=== PATIENT | male | born 1945 | race Caucasian/White ===

== ENCOUNTER → 2016-09-12 | Outpatient (CLI) | payer BC ==
[~2016-09-12] MED LIST: ASPEC325 PO; ASPI-113 PO; ASPI-435 PO; ATOR-26 PO; DOCU100T7 PO; ENOX40IN SQ; FENO1TAB PO; FRS/40 PO; HYDR-5688 PO; METO50TA7 PO; POTA10CA28 PO; PRLSR20 PO
[2016-09-12 09:43] LABS: ALT/SGPT 32 U/L (12-78); AST/SGOT 26 U/L (15-37); BLOOD UREA NITROGEN 19 mg/dl (7-18); BUN/CREATININE RATIO 16.8 (10-20); CALCIUM 8.7 mg/dl (8.5-10.1); CARBON DIOXIDE 26 mmol/L (21-32); CHLORIDE 104 mmol/L (98-107); CHOLESTEROL 136 mg/dl (0-200); GLUCOSE 105 mg/dl (70-99); POTASSIUM 4.4 mmol/L (3.5-5.1); SODIUM 137 mmol/L (136-145); TRIGLYCERIDES 104 mg/dl (0-150); VERY LOW DENSITY LIPOPROT CALC 21 mg/dl
[2016-09-12 09:46] LABS: ALKALINE PHOSPHATASE 72 U/L (45-117); CHOLESTEROL/HDL RATIO 3.9; HDL CHOLESTEROL 35 mg/dl
[2016-09-12 09:53] LABS: ESTIMATED AVERAGE GLUCOSE 128 mg/dl; HA1C FLAG Normal (Normal)
== END | disposition home or self-care (01) ==
LOC: C.LAB1850 08:22
PROVIDERS: ATTEND Internal Medicine
DX: E78.5 Hyperlipidemia, unspecified (principal); I10 Essential (primary) hypertension; I25.10 Atherosclerotic heart disease of native coronary artery without angina pectoris; R73.9 Hyperglycemia, unspecified

== ENCOUNTER → 2016-11-07 | Outpatient (CLI) | payer BC | END | disposition home or self-care (01) | LOC: C.RDSM 14:01 | PROVIDERS: ATTEND Family Medicine Sports Medicine | DX: M25.561 Pain in right knee (principal) ==

== ENCOUNTER → 2016-12-19 | Outpatient (CLI) | payer BC ==
--- NOTE | 2016-12-19 14:31 | DIAGNOSTIC IMAGING REPORT ---
MRI THE RIGHT KNEE NO CONTRAST CLINICAL HISTORY: Right knee pain COMPARISON STUDY: Conventional radiographic study dated 11/07/2016 FINDINGS: Imaging was performed in sagittal, coronal, and axial planes. The patient was too large to fit into the high resolution coil. A larger coil was therefore utilized. There are no areas of marrow replacement to indicate occult fracture, bone bruise, or neoplasm. There is a suprapatellar joint effusion. The quadriceps and patellar tendons appear intact. Anterior and posterior cruciate ligaments appear intact. The medial and lateral collateral ligaments appear intact. There is a small subchondral cyst involving the far medial aspect of the medial tibial plateau. No tears a lateral meniscus are visualized. There is mild medial extrusion of the medial meniscus. There is a horizontal tear of the posterior horn. There is chondromalacia patella. IMPRESSION: 1. No evidence of cruciate or collateral ligament disruption 2. Chondromalacia patella 3. Medial extrusion of the medial meniscus with a horizontal tear involving the posterior horn 4. No evidence of lateral meniscal tear 5. Small joint effusion Electronically signed by: Quinton Lacey M.D. 12/19/2016 2:29 PM Dictated Date/Time: 12/19/2016 2:25 PM
== END | disposition home or self-care (01) ==
LOC: C.MRIBC 13:16
PROVIDERS: ATTEND Family Medicine Sports Medicine
DX: M17.9 Osteoarthritis of knee, unspecified (principal); M22.41 Chondromalacia patellae, right knee; S83.241A Other tear of medial meniscus, current injury, right knee, initial encounter; M25.461 Effusion, right knee

== ENCOUNTER → 2017-01-14 | Outpatient (CLI) | payer BC ==
[2017-01-14 12:35] LABS: ESTIMATED AVERAGE GLUCOSE 131 mg/dl; HA1C FLAG Normal (Normal)
[2017-01-14 13:51] LABS: ALB/GLOB RATIO 1.1 (0.9-2); ALKALINE PHOSPHATASE 62 U/L (45-117); ALT/SGPT 36 U/L (12-78); AST/SGOT 26 U/L (15-37); BLOOD UREA NITROGEN 21 mg/dl (7-18); BUN/CREATININE RATIO 19.5 (10-20); CALCIUM 8.7 mg/dl (8.5-10.1); CARBON DIOXIDE 27 mmol/L (21-32); CHLORIDE 106 mmol/L (98-107); CHOLESTEROL 141 mg/dl (0-200); GLUCOSE 104 mg/dl (70-99); HDL CHOLESTEROL 35 mg/dl; POTASSIUM 4.3 mmol/L (3.5-5.1); SODIUM 139 mmol/L (136-145); TRIGLYCERIDES 96 mg/dl (0-150); VERY LOW DENSITY LIPOPROT CALC 19 mg/dl
== END | disposition home or self-care (01) ==
LOC: C.LAB1850 10:15
PROVIDERS: ATTEND Internal Medicine
DX: I25.10 Atherosclerotic heart disease of native coronary artery without angina pectoris (principal); I10 Essential (primary) hypertension; R73.9 Hyperglycemia, unspecified

== ENCOUNTER 2017-01-15 09:29 | Emergency (ER) | payer BC ==
[~2017-01-15] VITALS: Ht 175.3 cm; Wt 113.6 kg
[~2017-01-15 09:29] MED LIST changes: -ASPI-113 PO; -ASPI-435 PO; -ENOX40IN SQ; -HYDR-5688 PO
[2017-01-15 09:31] VITALS: TEMP 36.5; Ht 175.3 cm; Wt 113.6 kg
[2017-01-15] MEDS ORDERED: NITROGLYCERIN 0.4 MG SL PER TAB CHARGE SL PRN (09:45)
[2017-01-15] MEDS ORDERED: ASPIRIN 81 MG CHEW PO STA (09:45)
--- NOTE | 2017-01-15 10:11 | EMERGENCY ROOM VISIT NOTE ---
History Report prepared by Fady: Dion Suggs Under the Supervision of: Dr. Luis Daniel Miranda D.O. First contact with patient: 09:36 Chief Complaint: CARDIAC ASSESSMENT Stated Complaint: PAIN DOWN LEFT ARM History of Present Illness The patient is a 71 year old male who presents to the Emergency Room with complaints of constant left arm pain that feels like an ache that started yesterday. The patient states that the pain radiates into his shoulder and shoulder blade. The patient states that he was just watching TV when he started to feel this pain. He states that he has an extensive heart history. 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 The patient then had cardiac bypass surgery during this incident as well as well as repairs. The patient states that nothing makes the pain better or worse, and he has not taken any medication or nitroglycerine. He denies any leg pain, abdominal pain, shortness of breath, vomiting, or diarrhea, though he is nauseous. The patient states that he takes aspirin every day, and he does not have a pacer. Additionally he states that he has a meniscus tear, and he has not had surgery yet. Source of History: patient Onset: yesterday Position: arm (left) Quality: ache Timing: constant Associated Symptoms: + nausea, No SOB, No vomiting, No diarrhea Note: Associated symptoms: Left shoulder pain Review of Systems See HPI for pertinent positives & negatives. A total of 10 systems reviewed and were otherwise negative. Past Medical & Surgical Medical Problems: (1) CAD (coronary artery disease) (2) Hyperlipidemia Surgical Problems: (1) S/P CABG (coronary artery bypass graft) (2) Stented coronary artery (3) [place] teeth removed Family History FH: CAD (coronary artery disease) Social History Smoking Status: Never Smoker Alcohol Use: occasionally Drug Use: none Marital Status: Housing Status: lives with significant other Occupation Status: employed Current/Historical Medications Scheduled Aspirin Enteric Coated (Ecotrin Or Generic), 325 MG PO QPM Atorvastatin (Lipitor), 80 MG PO QPM Fenofibrate (Tricor), 160 MG PO DAILY Furosemide (Lasix), 40 MG PO QPM Metoprolol Succ (Toprol Xl) (Toprol-Xl), 50 MG PO QPM Omeprazole (Prilosec), 20 MG PO QPM Potassium Chloride (Micro-K Ext Rel), 10 MEQ PO QPM Allergies Coded Allergies: No Known Allergies (Verified , 01/15/17) Uncoded Allergies: HAYFEVER (Allergy, Unknown, 09/02/02) Physical Exam Vital Signs Date Time Temp Pulse Resp B/P (MAP) Pulse Ox O2 Delivery O2 Flow Rate FiO2 01/15/17 15:00 45 18 140/74 98 01/15/17 13:03 40 15 146/83 97 Room Air 01/15/17 12:35 44 01/15/17 12:15 49 15 143/75 98 Room Air 01/15/17 10:34 95 Room Air 01/15/17 10:34 41 13 141/70 96 Room Air 01/15/17 10:24 42 20 136/73 97 Room Air 01/15/17 09:56 49 01/15/17 09:53 98 Room Air 01/15/17 09:50 98 Room Air 01/15/17 09:31 36.5 48 20 165/75 97 Room Air Physical Exam GENERAL: Patient is awake, alert, and in no acute distress. Patient is resting comfortably and showing no signs of anxiety EYES: The conjunctivae are clear. The pupils are round and reactive. EARS, NOSE, MOUTH AND THROAT: The nose is without any evidence of any deformity. Mucous membranes are moist tongue is midline NECK: The neck is nontender and supple. RESPIRATORY: Normal respiratory effort is noted there is no evidence of wheezing rhonchi or rales CARDIOVASCULAR: Regular rate and rhythm noted there no murmurs rubs or gallops normal S1 normal S2 GASTROINTESTINAL: The abdomen is soft. Bowel sounds are present in all quadrants. Abdomen is nontender MUSCULOSKELETAL/EXTREMITIES: There is no evidence of gross deformity full range of motion is noted in the hips and shoulders SKIN: Trace pedal edema noted bilaterally. No calf tenderness elicited. NEUROLOGIC: Patient is awake alert and oriented x3 Medical Decision & Procedures ER Provider Diagnostic Interpretation: Radiology results as stated below per my review and radiologist interpretation: SINGLE VIEW CHEST CLINICAL HISTORY: Atypical chest pain. FINDINGS: An AP, portable, upright chest radiograph is compared to study dated 02/20/2015. The examination is degraded by portable technique and apical lordotic positioning. The patient is status post midline sternotomy. The heart is enlarged and there is mild atherosclerotic calcification of the thoracic aorta. The pulmonary vasculature is noncongested. Chronic interstitial thickening is similar to previous. The lungs and pleural spaces are clear. No pneumothorax is seen. The bony thorax is grossly intact. IMPRESSION: Cardiomegaly with no acute cardiopulmonary abnormality. Electronically signed by: Chip Diallo M.D. 01/15/2017 10:35 AM Dictated Date/Time: 01/15/2017 10:34 AM Laboratory Results 01/15/17 10:15 Red Blood Count 4.92, Mean Corpuscular Volume 91.5, Mean Corpuscular Hemoglobin 29.1, Mean Corpuscular Hemoglobin Concent 31.8, Mean Platelet Volume 10.3, Neutrophils (%) (Auto) 53.1, Lymphocytes (%) (Auto) 31.0, Monocytes (%) (Auto) 11.3, Eosinophils (%) (Auto) 3.7, Basophils (%) (Auto) 0.6, Neutrophils # (Auto ) 3.61, Lymphocytes # (Auto) 2.11, Monocytes # (Auto) 0.77, Eosinophils # (Auto ) 0.25, Basophils # (Auto) 0.04 01/15/17 10:15 Test 01/15/17 10:15 01/15/17 13:50 White Blood Count 6.80 K/uL (4.8-10.8) Red Blood Count 4.92 M/uL (4.7-6.1) Hemoglobin 14.3 g/dL (14.0-18.0) Hematocrit 45.0 % (42-52) Mean Corpuscular Volume 91.5 fL (80-100) Mean Corpuscular Hemoglobin 29.1 pg (25-34) Mean Corpuscular Hemoglobin Concent 31.8 g/dl (32-36) Platelet Count 207 K/uL (130-400) Mean Platelet Volume 10.3 fL (7.4-10.4) Neutrophils (%) (Auto) 53.1 % Lymphocytes (%) (Auto) 31.0 % Monocytes (%) (Auto) 11.3 % Eosinophils (%) (Auto) 3.7 % Basophils (%) (Auto) 0.6 % Neutrophils # (Auto) 3.61 K/uL (1.4-6.5) Lymphocytes # (Auto) 2.11 K/uL (1.2-3.4) Monocytes # (Auto) 0.77 K/uL (0.11-0.59) Eosinophils # (Auto) 0.25 K/uL (0-0.5) Basophils # (Auto) 0.04 K/uL (0-0.2) RDW Standard Deviation 47.0 fL (36.4-46.3) RDW Coefficient of Variation 14.0 % (11.5-14.5) Immature Granulocyte % (Auto) 0.3 % Immature Granulocyte # (Auto) 0.02 K/uL (0.00-0.02) Prothrombin Time 11.8 SECONDS (9.0-12.0) Prothromb Time International Ratio 1.1 (0.9-1.1) Activated Partial Thromboplast Time 24.7 SECONDS (21.0-31.0) Partial Thromboplastin Ratio 1.0 Anion Gap 5.0 mmol/L (3-11) Est Creatinine Clear Calc Drug Dose 75.5 ml/min Estimated GFR () 77.3 Estimated GFR (Non- 66.7 BUN/Creatinine Ratio 20.5 (10-20) Calcium Level 8.9 mg/dl (8.5-10.1) Total Bilirubin 0.6 mg/dl (0.2-1) Direct Bilirubin 0.2 mg/dl (0-0.2) Aspartate Amino Transf (AST/SGOT) 28 U/L (15-37) Alanine Aminotransferase (ALT/SGPT) 35 U/L (12-78) Alkaline Phosphatase 61 U/L (45-117) Total Creatine Kinase 281 U/L (39-308) Creatine Kinase MB 4.4 ng/ml (0.5-3.6) Creatine Kinase MB Ratio 1.6 (0-3.0) Total Protein 6.5 gm/dl (6.4-8.2) Albumin 3.5 gm/dl (3.4-5.0) Lipase 193 U/L (73-393) Troponin I < 0.015 ng/ml (0-0.045) Laboratory results per my review. Medications Administered Medications (Trade) Dose Ordered Sig/[place] Route Start Time Stop Time Status Last Admin Dose Admin Aspirin (Aspirin Chew) 324 mg NOW STAT PO 01/15/17 09:45 01/15/17 09:46 DC 01/15/17 09:54 324 MG Nitroglycerin (Nitrostat Tab) 0.4 mg Q5M PRN SL 01/15/17 09:45 02/14/17 09:44 01/15/17 10:22 0.4 MG Acetaminophen (Tylenol Tab) 1,000 mg NOW STAT PO 01/15/17 11:35 01/15/17 11:36 DC 01/15/17 12:14 1,000 MG ECG Indication: other (Left arm pain) Rate (beats per minute): 48 Rhythm: sinus bradycardia Findings: RBBB, other (No PVC) Comparison ECG Date: 02/20/2015 Change: no significant change Change: Repeat EKG showed: Sinus bradycardia at 44bpm. No ectopy. Right bundle branch pattern noted. No acute ST segment abnormality. No change from earlier tracing. ED Course 0939: The patient was evaluated in room B4. A complete history and physical examination were performed. 0945: Nitrostat Tab 0.4mg SL, Aspirin Chew 324mg PO 1024: I reevaluated the patient, and he was doing well. 1133: I reassessed the patient, and he was very anxious. 1135: Tylenol Tab 1000mg PO 1358: I reevaluated the patient, and he was feeling okay 1428: I discussed the patient's case with Dr. Mccoy, Cardiology 1436: I discussed the patient's case with Dr. Stephy Hardwick, and he states that he is familiar with the patient's case, and he is comfortable with the EKG and troponin, and he will evaluate the patient in his office within the next 24 hours. 1450: I discussed the case with Dr. Stephy Hardwick, and he states that he talked with Dr. Mercado, and they are going to give the patient a stress test on Friday. 1455: Upon reevaluation, the patient is feeling well. I discussed the results and treatment plan with him. He verbalized agreement of the treatment plan. He was discharged home. Medical Decision Differential diagnosis: Etiologies such as cardiac ischemia, aortic dissection, pulmonary embolism, pneumonia, pneumothorax, musculoskeletal, infections, pericarditis, myocarditis , esophageal rupture, gastrointestinal, as well as others were entertained. Blood pressure screening: Patient was found to have an elevated blood pressure and was referred to their primary doctor for recheck and further treatment. Medication Reconciliation: I attest that I have personally reviewed the patient' s current medications list. The patient is a 71-year-old male who presented to the emergency department for evaluation of left upper extremity discomfort. The patient notices a throbbing his left upper extremity. He feels that this throbbing goes to his back as well as his left upper shoulder. The patient was concerned because he has a long cardiac history including coronary bypass as well as stenting in the past. The patient was initially treated with aspirin and nitroglycerin with no response. He does not have any weakness or headache. The patient had an EKG which showed no acute changes from previous tracing. He had a repeat EKG as well as a repeat troponin in 3 hours after his presentation. I discussed the patient's laboratory and radiographic studies with him. I [facility] however this equipment cleaner was not familiar with the patient's case directly. I also discussed his case with his primary care physician who is very concerned but also very familiar with this patient. He was able to contact the patient's primary equipment cleaner as scheduled with a stress test. Given the patient's ongoing symptoms since last evening and having serial EKG as well as troponin measurements and no acute changes noted I do feel comfortable that this patient can be managed as an outpatient. I discussed the patient's laboratory and radiographic studies with him. I also discussed the limitations of the emergency department workup for chest pain with him. He was encouraged to rest and avoid any strenuous activity. He was also encouraged to follow-up with his primary care physician as well as his equipment cleaner as scheduled. He was also encouraged to return to the emergency department immediately symptoms change worsen or the need arises. Consults Time Called: 1425 Consulting Physician: Dr. Mccoy, Cardiology Returned Call: 1426 I discussed the patient's case with Dr. Mccoy. Additional Consults: Time Called: 1432 Consulted Physician: Dr. Stephy Hardwick Returned Call: 1434, 1452 Additional Comments: I discussed the patient's case with Dr. Stephy Hardwick, and he states that he is familiar with the patient's case, and he is comfortable tiwht the EKG and troponin, and he will evaluate the patient in his office within the next 24 hours. I discussed the case with Dr. Stephy Hardwick, and he states that he talked with Dr. Mercado, and they are going to give the patient a stress test on Friday. Impression Primary Impression: Chest wall pain Additional Impression: Pain of left upper extremity Scribe Attestation The scribe's documentation has been prepared under my direction and personally reviewed by me in its entirety. I confirm that the note above accurately reflects all work, treatment, procedures, and medical decision making performed by me. Departure Information Dispostion Home / Self-Care Referrals Govind Owens M.D. (PCP) Forms IMPORTANT VISIT INFORMATION Patient Instructions ED Chest Pain Atypical Unkn Cause, My [facility] Additional Instructions Follow-up with your family tomorrow for reevaluation. Rest and avoid any strenuous activity. Continue all medications as prescribed. Return to the emergency department immediately if symptoms change worsen or the need arises. Problem Qualifiers
[2017-01-15] MEDS ORDERED: ASPI-113 PO (10:25)
[2017-01-15 10:26] LABS: BASO % 0.6 %; BASO ABS # 0.04 K/uL (0-0.2); COMPLETE YES; EOS % 3.7 %; IG% 0.3 %; LYMPH ABS # 2.11 K/uL (1.2-3.4); MEAN CELL VOLUME 91.5 fL (80-100); MEAN CORPUSCULAR HEMOGLOBIN 29.1 pg (25-34); MEAN CORPUSCULAR HGB CONC 31.8 g/dl (32-36); MEAN PLATELET VOLUME 10.3 fL (7.4-10.4); MONO % 11.3 %; NEUT % 53.1 %; PLATELET COUNT 207 K/uL (130-400); RED BLOOD COUNT 4.92 M/uL (4.7-6.1)
[2017-01-15 10:34] VITALS: O2SAT 95
[2017-01-15 10:35] LABS: INR 1.1 (0.9-1.1); PROTHROMBIN TIME (PATIENT) 11.8 SECONDS (9.0-12.0)
--- NOTE | 2017-01-15 10:37 | DIAGNOSTIC IMAGING REPORT ---
SINGLE VIEW CHEST CLINICAL HISTORY: Atypical chest pain. FINDINGS: An AP, portable, upright chest radiograph is compared to study dated 02/20/2015. The examination is degraded by portable technique and apical lordotic positioning. The patient is status post midline sternotomy. The heart is enlarged and there is mild atherosclerotic calcification of the thoracic aorta. The pulmonary vasculature is noncongested. Chronic interstitial thickening is similar to previous. The lungs and pleural spaces are clear. No pneumothorax is seen. The bony thorax is grossly intact. IMPRESSION: Cardiomegaly with no acute cardiopulmonary abnormality. Electronically signed by: Chip Diallo M.D. 01/15/2017 10:35 AM Dictated Date/Time: 01/15/2017 10:34 AM
[2017-01-15 10:46] LABS: ALT/SGPT 35 U/L (12-78); AST/SGOT 28 U/L (15-37); BLOOD UREA NITROGEN 23 mg/dl (7-18); BUN/CREATININE RATIO 20.5 (10-20); CALCIUM 8.9 mg/dl (8.5-10.1); CARBON DIOXIDE 28 mmol/L (21-32); CHLORIDE 107 mmol/L (98-107); GLUCOSE 102 mg/dl (70-99); POTASSIUM 4.6 mmol/L (3.5-5.1); SODIUM 140 mmol/L (136-145)
[2017-01-15 10:51] LABS: ALKALINE PHOSPHATASE 61 U/L (45-117); CKMB/CK RATIO 1.6 (0-3.0)
[2017-01-15] MEDS ORDERED: ACETAMINOPHEN 500 MG TAB PO STA (11:35)
[2017-01-15 15:00] VITALS: BP 140/74; PULSE 45; O2SAT 98
[2017-03-06] MEDS ORDERED: HYDR-5688 PO (09:58)
[2017-03-06] MEDS ORDERED: ASPI-435 PO (09:58)
[2017-03-06] MEDS ORDERED: ENOX40IN SQ (09:58)
== END 2017-01-15 15:02 | disposition home or self-care (01) ==
LOC: C.EDB 09:30
DX: R07.89 Other chest pain (principal); M79.622 Pain in left upper arm; I25.10 Atherosclerotic heart disease of native coronary artery without angina pectoris; E78.5 Hyperlipidemia, unspecified

== ENCOUNTER → 2017-01-17 | Outpatient (CLI) | payer BC ==
[~2017-01-17] MED LIST changes: -ASPEC325 PO; +ASPI-113 PO; +ASPI-435 PO; -DOCU100T7 PO; +ENOX40IN SQ; +HYDR-5688 PO; +PERFLUTREN LIPID MICROSPHERE (DEFINITY) IV ONE
--- NOTE | 2017-01-17 14:55 | EXERCISE STRESS ECHO ---
*NOTICE TO RECEIVING REPUBLICAN AGENCY This information is strictly Confidential and protected under [place] law. [place] law prohibits you from making any further disclosure of this information unless further disclosure is expressly permitted by the written consent of the person to whom it pertains or is authorized by law. A general authorization for the release of medical or other information is not sufficient for this purpose. Hospital accepts no responsibility if the information is made available to any other person, INCLUDING THE PATIENT. Interpretation Summary * Name: DOM CRENSHAW Study Date: 01/17/2017 10:55 AM BP: 124/64 mmHg * Patient Location: [facility] HR: 369 * : 1945 (M/d/yyyy) Gender: Male Height: 69 in * Age: 71 yrs Ethnicity: [place] Weight: 280 lb * Ordering Physician: ROBBIE ROBERTSON MD * Performed By: Yolette Gallardo RCS * * Reason For Study: CAD / L ARM PAIN * BSA: 2.4 m2 * -- Conclusions -- * 1. Normal stress echocardiogram at 7 Mets and a peak heart rate of 87% predicted maximum. * 2. No exercise-induced chest pain. * 3. Note EKG changes over the baseline abnormality. * 4. Baseline echocardiogram notes normal left ventricular systolic function. Procedure Details * ECHOEX, CPT #85807 * ECHO COLOR FLOW, CPT #[id number] * ECHO DOPPLER, CPT #[id number] * A contrast injection of Definity was performed to improve assessment of LV function. * Contrast was injected into an intravenous site in the left arm. * One vial of Definity ultrasound contrast was diluted in normal saline to a total volume of 10 ml. A total of '4' ml of solution was administered during imaging. * Lot # [id number] of Definity utilized for procedure. * Expiration date FEB 04. * The attending nurse who injected the contrast agent was YO DIAZ RN. Left Ventricle * The left ventricle is normal in size. * There is borderline concentric left ventricular hypertrophy. * Ejection Fraction = 50-55%. * Resting wall motion: Normal. Stress wall motion: Appropriate increase in Left ventricular systolic function and decrease in cavity size. No stress induced segmental wall motion abnormalities. * Septal motion is consistent with post-operative state. Right Ventricle * The right ventricle is not well visualized. * The right ventricular systolic function is normal as assessed by tricuspid annular plane systolic excursion (TAPSE) (normal >1.5 cm). Atria * The left atrium is not well visualized. * Right atrium not well visualized. * There is no evidence of atrial septal defect, but resolution does not allow assessment for a patent foramen ovale. Mitral Valve * The mitral valve is grossly normal. * There is no mitral valve stenosis. * Significant mitral regurgitation is absent. Tricuspid Valve * The tricuspid valve is not well visualized, but is grossly normal. * There is no tricuspid stenosis. * There is mild tricuspid regurgitation. Aortic Valve * The aortic valve is not well visualized. * The aortic valve opens well. * Aortic valve sclerosis mild, without significant aortic valvular stenosis. * No hemodynamically significant valvular aortic stenosis. * There is no significant aortic regurgitation. Pulmonic Valve * The pulmonary valve is not well seen, but the Doppler examination is normal without significant regurgitation or stenosis. Great Vessels * The aortic root is normal size. * The pulmonary is not well visualized. Pericardium * There is no pericardial effusion. Stress Parameters * Baseline ECG notes normal sinus rhythm and complete right bundle-branch block. * Stress ECG: No ST changes. No arrhythmias. * The stress portion of this study was personally supervised by the undersigned interpreting physician. * Rest heart rate was '39' BPM. * Rest blood pressure was '124/64' * Maximum heart rate achieved was 129 bpm. * Maximum heart rate was 87 % of maximum age-predicted heart rate. * Maximum blood pressure was '194/56' * Total exercise time was '06:00' * Maximum exercise MET level achieved was '7.00' METS * Maximum treadmill speed was '2.50' miles per hour. * Maximum treadmill elevation was '12.00'% grade. MMode 2D Measurements and Calculations IVSd 1.4 cm IVSs 1.5 cm LVIDd 4.1 cm LVIDs 3.4 cm LVPWd 1.1 cm LVPWs 1.5 cm IVS/LVPW 1.3 FS 17.7 % EDV(Teich) 75.0 ml ESV(Teich) 47.1 ml EF(Teich) 37.2 % EDV(cubed) 69.8 ml ESV(cubed) 39.0 ml EF(cubed) 44.2 % % IVS thick 2.7 % % LVPW thick 32.8 % LV mass(C)d 188.1 grams LV mass(C)dI 78.9 grams/m\S\2 LV mass(C)s 179.6 grams LV mass(C)sI 75.4 grams/m\S\2 SV(Teich) 27.9 ml SI(Teich) 11.7 ml/m\S\2 SV(cubed) 30.9 ml SI(cubed) 13.0 ml/m\S\2 Ao root diam 2.9 cm Ao root area 6.8 cm\S\2 ACS 1.9 cm LA dimension 3.5 cm LA/Ao 1.2 LVOT diam 1.9 cm LVOT area 2.7 cm\S\2 LVAd ap4 34.4 cm\S\2 LVLd ap4 8.5 cm EDV(MOD-sp4) 114.3 ml EDV(sp4-el) 118.5 ml LVAs ap4 24.7 cm\S\2 LVLs ap4 7.6 cm ESV(MOD-sp4) 65.5 ml ESV(sp4-el) 68.4 ml EF(MOD-sp4) 42.7 % EF(sp4-el) 42.3 % LVAd ap2 39.3 cm\S\2 LVLd ap2 9.9 cm EDV(MOD-sp2) 126.8 ml EDV(sp2-el) 132.3 ml LVAs ap2 26.7 cm\S\2 LVLs ap2 8.0 cm ESV(MOD-sp2) 71.9 ml ESV(sp2-el) 75.2 ml EF(MOD-sp2) 43.3 % EF(sp2-el) 43.1 % LVLd %diff 14.8 % EDV(MOD-bp) 128.7 ml LVLs %diff 5.5 % ESV(MOD-bp) 70.2 ml EF(MOD-bp) 45.5 % SV(MOD-sp4) 48.8 ml SI(MOD-sp4) 20.5 ml/m\S\2 SV(MOD-sp2) 54.9 ml SI(MOD-sp2) 23.0 ml/m\S\2 SV(MOD-bp) 58.5 ml SI(MOD-bp) 24.6 ml/m\S\2 SV(sp4-el) 50.1 ml SI(sp4-el) 21.0 ml/m\S\2 SV(sp2-el) 57.0 ml SI(sp2-el) 23.9 ml/m\S\2 Doppler Measurements and Calculations MV E max nivia 86.8 cm/sec MV A max nivia 29.3 cm/sec MV E/A 3.0 MV P1/2t max nivia 97.7 cm/sec MV P1/2t 135.1 msec MVA(P1/2t) 1.6 cm\S\2 MV dec slope 211.9 cm/sec\S\2 MV dec time 0.31 sec Ao V2 max 138.9 cm/sec Ao max PG 7.7 mmHg Ao max PG (full) 2.6 mmHg SILVER(V,A) 2.2 cm\S\2 SILVER(V,D) 2.2 cm\S\2 LV V1 max PG 5.1 mmHg LV V1 max 112.5 cm/sec PA V2 max 107.1 cm/sec PA max PG 4.6 mmHg TR max nivia 269.5 cm/sec
== END | disposition home or self-care (01) ==
LOC: C.CPL 10:05
PROVIDERS: ATTEND Internal Medicine
DX: I25.10 Atherosclerotic heart disease of native coronary artery without angina pectoris (principal); M79.602 Pain in left arm

== ENCOUNTER → 2017-02-14 | Outpatient (CLI) | payer BC ==
[~2017-02-14] MED LIST changes: -PERFLUTREN LIPID MICROSPHERE (DEFINITY) IV ONE
== END | disposition home or self-care (01) ==
LOC: C.RDSM 12:27
PROVIDERS: ATTEND Physical Medicine & Rehabilitation Sports Medicine
DX: S83.231A Complex tear of medial meniscus, current injury, right knee, initial encounter (principal); X58.XXXA Exposure to other specified factors, initial encounter

== ENCOUNTER → 2017-03-06 | Day surgery (SDC) | payer BC ==
[2017-02-18 08:23] VITALS: Ht 175.3 cm; Wt 127.3 kg
[~2017-03-06] VITALS: Ht 175.3 cm; Wt 127.3 kg
[~2017-03-06] MED LIST changes: +ATROPINE SULFATE 0.1 MG/ML 5ML SYR IV PRN; +CEFAZOLIN 3000 MG/65 ML D5W IV SCH; +DEXAMETHASONE SOD INJ 4 MG/ML VIAL ONE; +EpHEDrine SULFATE INJ 50 MG/ML AMP IV PRN; +FENTANYL CITRATE INJ 50 MCG/1 ML 2 ML VIAL IV PRN; +FENTANYL CITRATE INJ 50 MCG/1 ML 2 ML VIAL ONE; +FLUMAZENIL 0.1 MG/1 ML 10 ML VIAL IV PRN; +LABETALOL HCL IV 5 MG/ML 20ML IV PRN; +LACTATED RINGER'S 1000ML 1,000 ML IV SCH; +LIDOCAINE HCL 2% 2 ML VIAL (20MG/ML) ONE; +LIDOCAINE/EPINEPHRINE 1% INJ 50 ML VIAL ONE; +MIDAZOLAM HCL 1 MG/ML 2ML VIAL ONE; +MoRPHine SULFATE 2 MG/ML CARP IV PRN; +MoRPHine SULFATE 4 MG/ML 1 ML CARP\\VIAL IV PRN; +NALOXONE HCL 0.4 MG/1 ML VIAL/CARP IV PRN; +ONDANSETRON INJ 2 MG/ML 2 ML VIAL IV PRN; +ONDANSETRON INJ 2 MG/ML 2 ML VIAL ONE; +OXYCODONE/ACETAMINOPHEN 5-325 TAB PO PRN; +PROMETHAZINE HCL INJ 12.5 MG in SODIUM CHLORIDE 0.9% 50ML 50 ML IV PRN; +PROPOFOL IV EMULSION 10 MG/ML 20 ML VIAL IV ONE; +SODIUM CHLORIDE 0.9% 1000ML 1,000 ML IV SCH
--- NOTE | 2017-03-06 08:17 | History & Physical Bridge Note ---
H&P Re-Evaluation Bridge Note: I have examined the patient, reviewed the History & Physical and in the interval since the performance of the History & Physical I have noted the following changes of clinical significance: No changes noted
--- NOTE | 2017-03-06 10:03 | Discharge Instructions-[facility] ---
Discharge Instructions Date of Service Mar 06, 2017. Visit Reason for Visit: Right Knee Medial Meniscus Tear Discharge Discharge Diagnosis / Problem: right knee DJD, medial meniscus tear Discharge Goals Goal(s): Decrease discomfort, Improve function, Increase independence Medications Stopped Medications Name(s): asa 325 MG STOPPED 5 DAYS AGO. Restart Stopped Medication(s): Resume ASA 325mg daily Activity Recommendations Activity Limitations: per Instructions/Follow-up section Weightbearing Status: Left weightbearing (as tolerated), Right weightbearing ( as tolerated) Anesthesia . Post Anesthesia Instructions: If you have had General Anesthesia or IV Sedation: * Do not drive today. * Resume driving when surgeon permits. * Do not make important decisions or sign legal documents today. * Call surgeon for: 1. Temperature elevations greater than 101 degrees F. 2. Uncontrollable pain. 3. Excessive bleeding. 4. Persistent nausea and vomiting. 5. Medication intolerance (nausea, vomiting or rash). * For nausea and vomiting use only clear liquids such as: tea, soda, bouillon until nausea subsides, then gradually increase diet as tolerated. * If you have any concerns or questions, call your surgeon's office. If physician is unavailable and it is an emergency, call 911 or go to the nearest emergency room. . Instructions / Follow-Up Instructions / Follow-Up The following are instructions to follow after your Arthroscopic Knee Surgery. ACTIVITY RECOMMENDATIONS: * Minimize activity until your first visit after surgery. * No excessive walking, jogging, sports or laboring. * Return to activity is individualized. Most patients are able to return to every day activities within one month. * Return to sports or intensive labor usually occurs at 2-3 months. * Driving is not permitted until at least your first postoperative visit at a minimum. Please ask your doctor when it is safe to resume driving. If you have an automatic vehicle and your left leg has been operated on, then you may begin driving as soon as you are comfortable and can drive safely. SCHOOL/WORK RECOMMENDATIONS: * You may return to sedentary work or school when you are feeling more comfortable. This is usually 3-7 days after surgery. * Expect increased discomfort with increased activity. Continue to elevate and ice the leg as much as possible. MEDICATIONS: * You will have a prescription for pain medication and an anti-inflammatory medication after surgery. * Use the pain medication for severe pain and the anti-inflammatory for less severe pain. Once the pain medication has run out, try to use the anti-inflammatory medication. If this is not effective, contact the office for assistance. * The pain medication may cause nausea, constipation and drowsiness. You should see how they affect you before driving or similar activity. * The anti-inflammatory medication may cause stomach upset and bleeding. If this occurs let your doctor know immediately . * Take a stool softener like Colace or a laxative like Senokot to prevent constipation. * Lovenox 40mg daily x 14 days. First dose on 03/06/17 at 10:00 p.m. * Resume Aspirin 325mg daily tomorrow with food DIET: * Resume previous diet. SPECIAL CARE: ICE: You have the option of an ice cooler, gel packs or ice bags. * If you have an ice cooler, refer to the instructions for that device. The ice cooler may be used continuously. * If you do not have an ice cooler, you will need to use ice bags or gel packs. Do not apply ice directly to the skin. Use a thin dressing or shimon shirt between the skin and ice bag. Apply ice for 20-30 minutes and repeat every 2-4 hours. This is especially important for the first 7-10 days after surgery. Once the pain improves, use ice as needed. ELEVATION: * Keep your leg elevated at or above the level of your heart as much as possible. * Expect some increased discomfort and swelling if you are standing for any length of time. * When lying down, avoid placing anything under your knee. Rather, prop your leg up by placing several pillows under your heel or calf. DRESSING: * Your dressing will be changed at your first therapy appointment approximately 4-5 days after surgery. Band-aids, tape strips or gauze may be applied. You may then change your dressing daily. * Reapply dressing followed by the Rob wrap or Tubi-statistical developer stockinet and EBIce cooling pad (if chosen). * Always wash your hands prior to touching the incision area. * Once the stitches are removed, you may leave the wound open to air or cover with an Rob wrap or Tubi-statistical developer stockinet. * If you have been given a white elastic stocking (GUSTAVO hose), wear as much as possible for the first 1-3 weeks depending on swelling. * Expect some bloody drainage for the first few days after surgery. * Leave the tape strips, if present, in place for 5-7 days. * Band-aids and gauze may be changed daily. CRUTCHES: * You will need to use crutches after surgery. * You may gradually progress to full weight bearing as tolerated and wean off the crutches unless otherwise advised. * Your therapist can provide assistance weaning off crutches. * Patients who have a microfracture done may need to be toe-touch weight- bearing for 4-6 weeks. BATHING: * You may shower or sponge-bathe immediately after surgery. * The dressing will need to be covered with a plastic bag or plastic wrap until the dressing is changed on the fourth or fifth day after surgery. * Once the dressing has been changed on the fourth or fifth day after surgery, you may shower and get the incision wet. * Wash with regular soap and water. * Do not bathe (submerge the incision), soak, swim or use a hot tub until the incision is completely healed over with normal skin and the doctor has given the OK to proceed. * There is no need to apply any ointments, powders or salves to your incision. * Do not apply alcohol or hydrogen peroxide directly to the incision. * Diluted peroxide (50:50 mixture with sterile saline) may be used to clean dried blood from around the incision area. BRACE: * Bracing is generally not needed after routine Arthroscopic Knee surgery. THERAPY: * You will begin therapy four or five days after surgery. * Organized therapy with the therapist is important for the first 4-6 weeks after surgery. During that time you will attend therapy 1-3 times per week. * You will also need to do daily exercises for range of motion and strength as instructed. PROBLEMS/QUESTIONS: * If you have any problems such as severe pain, numbness, tingling or high fevers or if you have any questions, please contact the office at [phone]. * It is not uncommon to have some numbness and tingling after the surgery especially if you have had a nerve block done. This should gradually improve over the first 1- 2 days. If this persists longer or worsens please contact the office. FOLLOW UP VISIT: * If not already scheduled, please call the office at to schedule a follow-up appointment for 10 days, 6 weeks and 3 months after surgery. * You have a follow up appointment with Dr. Crews on 03/21/17 at 10:00 a.m. * You will start physical therapy on 03/10/17 at 10:30 a.m. Diet Recommendations Home Diet: no limitations, resume previous diet Procedures Procedures Performed: Right Knee Arthroscopic Partial Meidal Meniscectomy Pending Studies Studies pending at discharge: no Medical Emergencies . Who to Call and When: Medical Emergencies: If at any time you feel your situation is an emergency, please call 911 immediately. . Non-Emergent Contact Non-Emergency issues call your: Surgeon Call Non-Emergent contact if: temperature is above 101, your pain is not controlled, your pain is concerning you, wound has increased drainage, wound has increased redness, wound has increased pain, you have any medication questions . . "Provider Documentation" section prepared by Tara Prado. .
--- NOTE | 2017-03-06 10:08 | [facility] Operative Report ---
Operative Report Operative Date Mar 06, 2017. Pre-Operative Diagnosis Right Knee Medial Mensical Tear Post-Operative Diagnosis Same Procedure(s) Performed Right Knee Arthroscopic Partial Meidal Meniscectomy Surgeon Dr. Crews Fresh Food Manager Surgeon(s) Rosita Prado PA-C Estimated Blood Loss None Findings DJD right knee; medial meniscus tear Specimens None Drains None Anesthesia General Complication(s) None Disposition Recovery Room / PACU Indications Patient is a 71 year old male with complaints of right knee pain, progressively worsening, failed conservative treatment. X-rays/MRI obtained, found to have right knee medial meniscus tear. Surgical intervention discussed, he wished to proceed. Risks/complications discussed, informed consent obtained. Description of Procedure Patient was taken to the operating room, given 3gm IV Ancef, general anesthesia. Time out performed, prepped and draped in routine sterile fashion. I was present the entire case, please see Dr. Crews's operative report for further detail. Patient was taken to the recovery room in stable condition. I attest to the content of the Intraoperative Record and any orders documented therein. Any exceptions are noted below.
--- NOTE | 2017-03-06 10:08 | [facility] Operative Report ---
Operative Report Operative Date Mar 06, 2017. 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 Crews Primary Counselor Surgeon(s) Rosita Prado PA-C Estimated Blood Loss None Findings Chronic degenerative medial meniscus tear. 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 He has a degenerative medial meniscus tear. I do not think that his arthritis is significant enough to warrant knee replacement. He has failed conservative treatment including therapy rest medications and injections. He is counseled regarding realistic expectations of the arthroscopic surgery. His BMI is 41. Description of Procedure Patient was identified as Jamey Agee. He identified the operative site as the right knee. I marked with my initials. A preoperative surgical timeout was performed. He received appropriate dose of IV antibiotics. He was taken to the operating room positioned supine on the OR table. A lateral post was used for stressing the knee. No tourniquet was utilized. A bump was placed under the right hip. The right lower extremity was prepped and draped in the usual sterile fashion. DVT prophylaxis intraoperatively with foot pumps. Postoperatively early mobility and Lovenox beginning 12 hours postoperatively. The exam under anesthesia revealed range 0/0/125. There was not any effusion. The patient's body habitus is large. There is no pathological cruciate or collateral ligament laxity. Prior to the procedure the fat pad portal sites and knee joint were injected with 1% lidocaine with epinephrine. Inferolateral viewing portal superior lateral outflow portal and inferomedial working portals were established. Diagnostic arthroscopy was performed. There were no loose bodies noted. The medial and lateral gutters and the popliteal hiatus were unremarkable. Marginal osteophytes were noted along the superior border of the trochlea medial intercondylar notch medial and lateral femur. The cruciates were normal. The ligamentum mucosum and retropatellar fat pad were resected. There appeared to be grade 1 chondrosis diffusely of the trochlea. There were grade 3 and 4 changes of the proximal half of the patella. The lower portions of the median ridge medial and lateral facets had at least grade 1 changes and perhaps more. Chondroplasty was performed. Removed some fragments. The medial compartment showed diffuse grade 1 and some areas of grade 2 chondrosis anterior medial tibial plateau. There was a degenerative tear of the posterior horn of the medial meniscus. There was an unstable flap medially. This was debrided back to a stable balanced and well comport rim using basket forceps and the shaver. The posterior medial and posterior lateral compartments were normal. There was diffuse grade 2 and 3 chondrosis of the medial femoral condyle weightbearing area of the tibiofemoral joint chondroplasty was performed to remove any unstable frayed pieces. The lateral compartment showed an intact meniscus there were some grade 1 and 2 chondrosis of the lateral tibial plateau. There was diffuse slow gait grade chondrosis of the lateral femoral condyle with an area in the weightbearing surface where there was a large cartilaginous defect about 1 cm in diameter which appeared to be near full-thickness. There were unstable flaps from periphery which were debrided to prevent loose body formation. This lesion ended up being about 1-1/ 2 cm in diameter. This was the weightbearing area of the lateral femoral condyle. The arthroscopic portals were closed with 4-0 nylon. A soft sterile dressing and full-length Rob wrap were applied. Patient was awakened from anesthesia without difficulty. He was taken to recovery room in stable condition. There were no specimens or complications. Counts are correct in the case. Blood loss was minimal. At the conclusion operation I spoke the patient's informed her of my findings. Detailed postoperative instructions were given. He will be rehabilitated according to the arthroscopic partial meniscectomy rehabilitation protocol area he may weight-bear as tolerated. He can continue his aspirin. He will start Lovenox 40 mg subcutaneous daily. Begin DVT prophylaxis 12 hours postoperatively and will continue this for period of time 2 weeks. I attest to the content of the Intraoperative Record and any orders documented therein. Any exceptions are noted below.
[2017-03-06 10:53] VITALS: TEMP 36.1
--- NOTE | 2017-03-06 10:54 | Anesthesia Progress Nt - [facility] ---
Anesthesia Post Op Note Date & Time Mar 06, 2017 at 10:53 Vital Signs Pain Intensity: 5 Vital Signs Past 12 Hours Date Time Temp Pulse Resp B/P (MAP) Pulse Ox O2 Delivery O2 Flow Rate FiO2 03/06/17 10:39 48 16 03/06/17 10:39 48 16 95 03/06/17 10:37 36.3 95 Room Air 03/06/17 10:35 123/55 03/06/17 10:34 44 13 96 03/06/17 10:34 44 13 03/06/17 10:30 113/55 03/06/17 10:29 45 13 03/06/17 10:29 44 13 95 03/06/17 10:28 45 17 03/06/17 10:28 44 17 96 03/06/17 10:25 116/60 03/06/17 10:23 44 13 03/06/17 10:23 43 13 95 03/06/17 10:20 124/58 03/06/17 10:18 42 15 03/06/17 10:18 42 15 97 03/06/17 10:15 132/70 03/06/17 10:13 44 11 99 03/06/17 10:13 44 11 03/06/17 10:12 45 14 03/06/17 10:12 45 14 03/06/17 10:12 40 14 98 03/06/17 10:12 40 14 98 03/06/17 10:10 126/78 03/06/17 10:10 126/78 03/06/17 10:07 47 13 03/06/17 10:07 47 13 03/06/17 10:07 46 13 98 03/06/17 10:07 46 13 98 03/06/17 10:05 142/76 03/06/17 10:05 142/76 03/06/17 10:02 45 12 03/06/17 10:02 45 12 03/06/17 10:02 42 12 99 03/06/17 10:02 42 12 99 03/06/17 10:00 141/82 03/06/17 10:00 141/82 03/06/17 09:57 56 03/06/17 09:57 36.2 53 18 142/76 98 Mask 6 03/06/17 09:57 56 142/78 96 03/06/17 09:57 56 03/06/17 09:57 56 142/78 96 03/06/17 07:20 36.7 50 20 137/73 (94) 94 Room Air Notes Mental Status: alert / awake / arousable, participated in evaluation Pt Amnestic to Procedure: Yes Nausea / Vomiting: adequately controlled Pain: adequately controlled Airway Patency, RR, SpO2: stable & adequate BP & HR: stable & adequate Hydration State: stable & adequate Anesthetic Complications: no major complications apparent
[2017-03-06 11:32] VITALS: BP 127/74; PULSE 47; O2SAT 97
== END | disposition home or self-care (01) ==
LOC: X.SURG 06:55
PROVIDERS: ATTEND Physical Medicine & Rehabilitation Sports Medicine
DX: M23.203 Derangement of unspecified medial meniscus due to old tear or injury, right knee (principal); I10 Essential (primary) hypertension; E78.00 Pure hypercholesterolemia, unspecified; I25.2 Old myocardial infarction; I25.10 Atherosclerotic heart disease of native coronary artery without angina pectoris; Z95.1 Presence of aortocoronary bypass graft; Z95.5 Presence of coronary angioplasty implant and graft; K21.9 Gastro-esophageal reflux disease without esophagitis; E66.9 Obesity, unspecified; M48.06 Spinal stenosis, lumbar region; M17.11 Unilateral primary osteoarthritis, right knee; Z79.82 Long term (current) use of aspirin; Z79.899 Other long term (current) drug therapy

== ENCOUNTER → 2017-05-07 | Outpatient (CLI) | payer BC ==
[~2017-05-07] MED LIST changes: -ASPI-435 PO; -ATROPINE SULFATE 0.1 MG/ML 5ML SYR IV PRN; -CEFAZOLIN 3000 MG/65 ML D5W IV SCH; -DEXAMETHASONE SOD INJ 4 MG/ML VIAL ONE; -ENOX40IN SQ; -EpHEDrine SULFATE INJ 50 MG/ML AMP IV PRN; -FENTANYL CITRATE INJ 50 MCG/1 ML 2 ML VIAL IV PRN; -FENTANYL CITRATE INJ 50 MCG/1 ML 2 ML VIAL ONE; -FLUMAZENIL 0.1 MG/1 ML 10 ML VIAL IV PRN; -LABETALOL HCL IV 5 MG/ML 20ML IV PRN; -LACTATED RINGER'S 1000ML 1,000 ML IV SCH; -LIDOCAINE HCL 2% 2 ML VIAL (20MG/ML) ONE; -LIDOCAINE/EPINEPHRINE 1% INJ 50 ML VIAL ONE; -MIDAZOLAM HCL 1 MG/ML 2ML VIAL ONE; -MoRPHine SULFATE 2 MG/ML CARP IV PRN; -MoRPHine SULFATE 4 MG/ML 1 ML CARP\\VIAL IV PRN; -NALOXONE HCL 0.4 MG/1 ML VIAL/CARP IV PRN; -ONDANSETRON INJ 2 MG/ML 2 ML VIAL IV PRN; -ONDANSETRON INJ 2 MG/ML 2 ML VIAL ONE; -OXYCODONE/ACETAMINOPHEN 5-325 TAB PO PRN; -PROMETHAZINE HCL INJ 12.5 MG in SODIUM CHLORIDE 0.9% 50ML 50 ML IV PRN; -PROPOFOL IV EMULSION 10 MG/ML 20 ML VIAL IV ONE; -SODIUM CHLORIDE 0.9% 1000ML 1,000 ML IV SCH
[2017-05-07 09:58] LABS: BLOOD UREA NITROGEN 21 mg/dl (7-18); BUN/CREATININE RATIO 18.8 (10-20); CALCIUM 9.2 mg/dl (8.5-10.1); CARBON DIOXIDE 33 mmol/L (21-32); CHLORIDE 102 mmol/L (98-107); CREATININE 1.09 mg/dl (0.60-1.40); GLUCOSE 107 mg/dl (70-99); SODIUM 139 mmol/L (136-145)
[2017-05-07 10:01] LABS: CHOLESTEROL 143 mg/dl (0-200); CHOLESTEROL/HDL RATIO 3.7; ESTIMATED AVERAGE GLUCOSE 126 mg/dl; HA1C FLAG Normal (Normal); HDL CHOLESTEROL 39 mg/dl; TRIGLYCERIDES 117 mg/dl (0-150); VERY LOW DENSITY LIPOPROT CALC 23 mg/dl
== END | disposition home or self-care (01) ==
LOC: C.LAB1850 08:07
PROVIDERS: ATTEND Internal Medicine
DX: Z00.00 Encounter for general adult medical examination without abnormal findings (principal); R73.9 Hyperglycemia, unspecified; I25.10 Atherosclerotic heart disease of native coronary artery without angina pectoris; E78.5 Hyperlipidemia, unspecified; I10 Essential (primary) hypertension

== ENCOUNTER → 2017-09-15 | Outpatient (CLI) | payer BC ==
[~2017-09-15] MED LIST changes: -HYDR-5688 PO; -METO50TA7 PO; +METO50TA8 PO
[2017-09-15 10:31] LABS: HEMOGLOBIN A1C 6.4 % (4.5-5.6)
[2017-09-15 10:36] LABS: BLOOD UREA NITROGEN 18 mg/dl (7-18); CALCIUM 9.3 mg/dl (8.5-10.1); CARBON DIOXIDE 29 mmol/L (21-32); CHOLESTEROL 166 mg/dl (0-200); CREATININE 1.16 mg/dl (0.60-1.40); GLUCOSE 120 mg/dl (70-99); POTASSIUM 4.3 mmol/L (3.5-5.1); SODIUM 137 mmol/L (136-145)
[2017-09-15 10:38] LABS: LDL CHOLESTEROL (DIRECT) 108 mg/dl
== END | disposition home or self-care (01) ==
LOC: C.LAB1850 09:04
PROVIDERS: ATTEND Internal Medicine
DX: Z00.01 Encounter for general adult medical examination with abnormal findings (principal); I25.10 Atherosclerotic heart disease of native coronary artery without angina pectoris; I10 Essential (primary) hypertension; E78.5 Hyperlipidemia, unspecified; R73.9 Hyperglycemia, unspecified

== ENCOUNTER → 2017-10-24 | Outpatient (CLI) | payer BC | END | disposition home or self-care (01) | LOC: C.RDSM 15:29 | PROVIDERS: ATTEND Family Medicine Sports Medicine | DX: M54.2 Cervicalgia (principal) ==